=== PATIENT | female | born 2000 | race Asian ===

== ENCOUNTER 2025-07-30 10:26 | Outpatient (AMB) | payer BC, SELFPAY ==
--- NOTE | 2025-07-30 10:45 | MHC.PC.OV ---
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 Intake Note: Pt is here today as a New Patient to [facility] care/PE Is last menstrual period known: Yes Last menstrual period: 07/01/25 Allergies No Known Allergies Allergy (Verified 07/30/25 11:10) Medication List - Last Reconciled 07/30/25 by Caridad Paul MD atomoxetine 60 mg PO QAM Tobacco use date assessed: 07/30/25 Dental Screening Dental Screen Date: 07/30/25 Did you have a dental visit in the last 12 months?: Yes Did you have a dental problem in the last 6 months where you did not have access to dental care?: No Was dental information given to patient?: 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 She is currently being followed by Silvio Liu at [facility] for treatment of ADHD, currently on Strattera. Diagnosed with ADHD at age 10, and has tried Adderall, Vyvanse, which did not help, now on Strattera which has been helping. She has been feeling well, with no complaints at present time. Sexually active not on any control pills or contraceptions, patient states that boyfriend will be getting a vasectomy. Never had a cervical cancer screening or Pap smear done [facility] Medical History (Updated 07/30/25 @ 11:35 by Caridad Paul MD) ADHD Surgical History (Updated 07/30/25 @ 11:30 by Caridad Paul MD) No pertinent past surgical history Family History (Updated 07/30/25 @ 11:32 by Caridad Paul MD) Other No pertinent family history Social History Housing: House Patient Tobacco Use Status: Never used Tobacco e-Cigarette/Vaping Use: Currently Using service: No Current occupational status: employed Cognitive needs: No Hearing needs: No Vision needs: Yes Female Reproductive History Menstrual Date of last menstrual period: 07/01/25 control method: none Questionnaire PHQ-9 Over the last 2 weeks, how often have you been bothered by any of the following problems? 1. Little interest or pleasure in doing things: not at all 2. Feeling down, depressed, or hopeless: not at all 3. Trouble falling or staying asleep, or sleeping too much: several days 4. Feeling tired or having little energy: several days 5. Poor appetite or overeating: several days 6. Feeling bad about yourself - or that you are a failure or have let yourself or your family down: not at all 7. Trouble concentrating on things, such as reading the newspaper or watching television: several days 8. Moving or speaking so slowly that other people could have noticed. Or the opposite - being so fidgety or restless that you have been moving around a lot more than usual: not at all 9. Thoughts that you would be better off or of hurting yourself in some way: not at all Total score: 4 Depression Screening Interpretation: Negative Depression Screening Done: Yes 45094 - PHQ-9 Billing: Yes Source: Developed by Drs. Cam Wiseman, Heather Choe, Jeison Miller and colleagues, with an educational rosaline from [employer]. Thrive Questionnaire Date Thrive assessed: 07/30/25 I am a: Patient What is your living situation today?: I have a steady place to live Within the past 12 months, did the food you bought not last and you didn't have the money to get more?: Never true Within the past 12 months, did you worry whether your food would run out before you got money to buy more?: Never true Do you have trouble paying for medicines?: No Do you have trouble getting transportation to medical appointments?: No Do you have trouble paying your heating and electricity bill?: No Do you have trouble taking care of your child, family member or friend?: No Do you have trouble with day-to-day activities such as bathing, preparing meals, shopping, managing finances, etc.?: No Are you currently unemployed and looking for a job?: No Are you interested in more education?: No Please select the resources that you would like help with: None Currently or been in a relationship where the following occur: No concerns reported THRIVE Score: 0 AUDIT C Alcohol Use Questionnaire (AUDIT-C) 1. How often do you have a drink containing alcohol?: 2-4 times a month 2. How many drinks containing alcohol do you have on a typical day when you are drinking?: 1 or 2 3. How often do you have six or more drinks on one occasion?: Never Total Score: 2 Score Reviewed/Action Taken: Yes CHARITY-7 AMB Questionnaire CHARITY-7 Date CHARITY - 7 assessed: 07/30/25 Feeling nervous, anxious, or on edge: 1 = Several days Not being able to stop or control worryin = Several days Worrying too much about different things: 1 = Several days Trouble relaxin = More than half the days Being so restless that it is hard to sit still: 1 = Several days Becoming easily annoyed or irritable: 0 = Not at all Feeling afraid as if something awful might happen: 1 = Several days Total CHARITY-7 score (0-4 normal; 5-9 mild; 10-14 moderate; 15-21 severe): 7 Source: Developed by Drs. Cam Wiseman, Heather Choe, Jeison Miller and colleagues, with an educational rosaline from [employer]. CHARITY-7 Assessment Billing CHARITY-7 Assessment Tool: CHARITY-7 Assessment 46249 (Currently being seen for ADHD at [facility], sees Silvio Liu, currently on Strattera) Review of Systems Const Denies body aches, Denies fatigue, Denies fever(s), Denies headache(s) and Denies weakness Eyes Denies change in vision, Denies eye discharge and Denies itchy eyes ENT Denies dizziness, Denies headache(s), Denies nasal congestion, Denies nasal discharge and Denies sore throat Card Denies chest pain, Denies lightheadedness, Denies palpitations and Denies dyspnea Resp Denies chest congestion, Denies cough, Denies dyspnea and Denies wheezing GI Denies abdominal pain, Denies change in bowel habits and Denies heartburn Denies hematuria, Denies urinary frequency, Denies dysuria and Denies urinary urgency Musc Reports no additional complaints Skin/Breast Denies breast pain, Denies breast mass, Denies lesions and Denies rash Neuro Denies dizziness, Denies headache(s) and Denies weakness Psych Reports as per HPI Endo Denies fatigue, Denies polydipsia, Denies polyuria and Denies palpitations Abdi/Lymph Denies easy bruising Aller/Immun Denies itchy eyes, Denies seasonal rhinorrhea and Denies wheezing Physical exam (Primary Care) Vital Signs: Last Vital Signs Temp 98.2 F 07/30/25 11:03 Pulse 87 07/30/25 11:03 Resp 15 07/30/25 11:03 BP 100/60 07/30/25 11:03 Pulse Ox 98 07/30/25 11:03 Oxygen Delivery Method Room Air 07/30/25 11:03 BMI result Body Mass Index 21.7 Tobacco/Smoking Status: Tobacco use Status Tobacco use date assessed 07/30/25 07/30/25 11:09 Patient Tobacco Use Status Never used Tobacco 07/30/25 11:09 e-Cigarette/Vaping Use Currently Using 07/30/25 11:09 PHQ-9: PHQ-9 Score PHQ-9: Total score 12 07/30/25 11:09 Depression Screening Interpretation: Negative Thrive Assessment: Date of Thrive Assessment Date Thrive assessed 07/30/25 07/30/25 11:09 Currently or been in a relationship where the following occur: No concerns reported Const General: no acute distress and alert Orientation/consciousness: patient oriented x3 HENMT Head: Yes normocephalic Ears: external ears normal, TM's normal bilaterally and EAC's normal General nose exam: Normal external nose present and No nasal discharge present Face and sinus: Yes face symmetric Mouth: Normal oral and palatal mucosa present, lip normal, tongue normal and moist mucous membranes Eyes General: appearance normal, both eyes and all related structures Eyelids: Yes eyelids normal Conjunctivae: conjunctivae normal Sclerae: sclerae normal Pupils: Equal, round and reactive pupils present EOM: EOMs intact bilaterally Neck Neck: Yes full ROM, Yes no lymphadenopathy and Yes supple Thyroid: Thyroid normal Chest Breast/axilla inspection: normal inspection of the breasts Breast/axilla palpation: normal palpation of the breasts Resp Effort & Inspection: normal respiratory effort and able to speak in complete sentences Auscultation: clear to auscultation bilaterally Cardio Rate: regular rate Rhythm: regular rhythm Heart sounds: S1 normal heart sound present and S2 normal heart sound present GI Palpation (GI): Soft to palpation, nontender, no guarding and no masses Auscultation: normal bowel sounds General: Yes no CVA tenderness Back/Spine/Pelvis Back: no CVA tenderness and No back tenderness Skin General skin exam: no rashes or lesions noted Neuro General: patient oriented x3, gait normal, moves all extremities and no focal motor deficits Cranial nerves: Yes Equal, round and reactive pupils present Cognition (Neuro): normal cognition Gait exam (Neuro): Normal gait present Motor exam (neuro): 5/5 motor strength present throughout Extrem General: Yes normal to inspection, Yes full ROM, Yes no joint enlargement, Yes no pedal edema and Yes normal gait Psych Appearance: grossly normal and well kempt Mental Status: mental status grossly normal Speech and movement: Normal speech and movement present Affect: normal affect Coding Level of Care Code Est Pt Prev Care 18-39y(57709) Diagnoses Annual visit for general adult medical examination with abnormal findings Z00.01 Screening for malignant neoplasm of cervix Z12.4 Attention deficit hyperactivity disorder (ADHD), unspecified ADHD type F90.9 Attention deficit-hyperactivity disorder type: unspecified Advance directive discussed with patient Z71.89 Additional Codes CHARITY-7 Assessment Billing - CHARITY-7 Assessment Tool: CHARITY-7 Assessment 48595 ([id number]) PHQ-9 - 76210 - PHQ-9 Billing: Yes ([id number]) Assessment & Plan Assessment & Plan (1) Annual visit for general adult medical examination with abnormal findings: Code(s): Z00.01 - Encounter for general adult medical examination with abnormal findings (2) Screening for malignant neoplasm of cervix: Code(s): Z12.4 - Encounter for screening for malignant neoplasm of cervix (3) ADHD: Comment: Followed by Silvio Liu, currently on Strattera Code(s): F90.9 - Attention-deficit hyperactivity disorder, unspecified type Category: Medical Qualifiers: Attention deficit-hyperactivity disorder type: unspecified Qualified Code(s): F90.9 - Attention-deficit hyperactivity disorder, unspecified type Plan: Currently on Strattera, followed at [facility] by Silvio Liu (4) Advance directive discussed with patient: Code(s): Z71.89 - Other specified counseling Plan: Initiated the conversation about Advanced Directives. Advanced Directives help patients prepare for current and future decisions about their medical treatment and place of care. Discussed with patient that it is a process where a patients current condition and prognosis are reviewed, their wishes for information regarding their illness are elicited, and likely medical dilemmas are presented and options discussed. Healthcare proxy form completed today. The form can be amended as needed, reviewed yearly and make changes as needed Plan Will check appropriate labs. Recommended dental visit every 6 months and regular eye exams, at least every 2 years. Take adequate calcium in diet and vitamin-D 3 at 2000 IU per cap once a day, in addition to weight-bearing exercises to help maintain good muscle tone and weight control. Instructed to do self-breast exam, and recommended to get yearly mammogram, starting at age 40. Referred to [facility] for her initial cervical cancer screening and pelvic exam. Flu vaccine given today. Up-to-date with to Tdap declines getting COVID booster Orders: Orders Influenza [id number] Immunization Today Z23 - Encounter for immunization Alanine Aminotransferase Today F90.9 - Attention-deficit hyperactivity disorder, unspecified type, Z13.0 - Encounter for screening for diseases of the blood and blood-forming organs and certain disorders involving the immune mechanism, Z13.1 - Encounter for screening for diabetes mellitus, Z13.220 - Encounter for screening for lipoid disorders Basic Metabolic Panel Fasting Today F90.9 - Attention-deficit hyperactivity disorder, unspecified type, Z13.0 - Encounter for screening for diseases of the blood and blood-forming organs and certain disorders involving the immune mechanism, Z13.1 - Encounter for screening for diabetes mellitus, Z13.220 - Encounter for screening for lipoid disorders Aspartate Amino Transferase Today F90.9 - Attention-deficit hyperactivity disorder, unspecified type, Z13.0 - Encounter for screening for diseases of the blood and blood-forming organs and certain disorders involving the immune mechanism, Z13.1 - Encounter for screening for diabetes mellitus, Z13.220 - Encounter for screening for lipoid disorders Complete Blood Count Auto Diff Today F90.9 - Attention-deficit hyperactivity disorder, unspecified type, Z13.0 - Encounter for screening for diseases of the blood and blood-forming organs and certain disorders involving the immune mechanism, Z13.1 - Encounter for screening for diabetes mellitus, Z13.220 - Encounter for screening for lipoid disorders Lipid Panel Today F90.9 - Attention-deficit hyperactivity disorder, unspecified type, Z13.0 - Encounter for screening for diseases of the blood and blood-forming organs and certain disorders involving the immune mechanism, Z13.1 - Encounter for screening for diabetes mellitus, Z13.220 - Encounter for screening for lipoid disorders Vitamin D 25-OH Total Today F90.9 - Attention-deficit hyperactivity disorder, unspecified type, Z13.0 - Encounter for screening for diseases of the blood and blood-forming organs and certain disorders involving the immune mechanism, Z13.1 - Encounter for screening for diabetes mellitus, Z13.220 - Encounter for screening for lipoid disorders Referrals ACQUISITION ASSOCIATE Referral Z12.4 - Encounter for screening for malignant neoplasm of cervix Medications: New Fluarix [id number] (PF) (flu vac ts (6mos up)-PF) 0.5 mL IM ONCE 0.5 mL 0RF NS Z23 - Encounter for immunization
[2025-07-30 11:03] VITALS: BP 100/60; PULSE 87; RESP 15; TEMP 36.8; O2SAT 98; BMI 21.7
--- OUTSIDE RECORDS SUMMARY | 2025-07-30 12:24 | XMS_ITS | Encounter Summary ---
Author Organization [facility] Address [address] [place] [phone] Phone Care Team Providers Care Multiple Coil Winder Name Role Phone Cyndee Bey MD Primary Care Provider [phone] Encounter Details Date Type Department Care Team (Late st Contact Info) Description 12/28/2016 Documentation [facility] [place] [address] [place] [address] Family Medicine, Physician [address] [place] [place], [place] [phone] Social History Tobacco Use Types Packs/Day Years Used Date Smoking Tobacco: Never Assessed Comments Unknown Sex and Gender Information Value Date Recorded Sex Assigned at Female 05/27/2020 11:05 AM EDT Legal Sex Female 5:23 PM EDT Gender Identity Female 05/27/2020 11:05 AM EDT Sexual Orientation Lesbian or House 05/27/2020 11 :05 AM EDT documented as of this encounter Plan of Treatment Not on file documented as of this encounter Visit Diagnoses Not on filedocumented in this encounter Care Teams Multiple Coil Winder Relationship Specialty Start Date End Date Cyndee Bey MD [address] [place] [id number] PCP - General 06/22/17 12/10/17 documented as of this encounter
--- OUTSIDE RECORDS SUMMARY | 2025-07-30 12:24 | XMS_ITS | Encounter Summary ---
Author Organization [facility] Address [address] [place] [address] Phone Care Team Providers Care Production Crew Supervisor Name Role Phone Cyndee Bey MD Primary Care Provider Encounter Details Date Type Department Care Team (Late st Contact Info) Description 02/08/2017 Documentation [facility] [place] Medicine [address] [place] [address] Family Medicine, Physician [address], [place] [id number] Social History Tobacco Use Types Packs/Day Years [...] on filedocumented in this encounter Care Teams Production Crew Supervisor Relationship Specialty Start Date End Date Cyndee Bey MD [address] [place] [address] PCP - General 06/22/17 12/10/17 documented as of this encounter
--- OUTSIDE RECORDS SUMMARY | 2025-07-30 12:24 | XMS_ITS | Encounter Summary ---
Author Organization [facility] Address [address] [place] [address] Phone Care Team Providers Care Datastage Consultant Name Role Phone Cyndee Bey MD Primary Care Provider [phone] Encounter Details Date Type Department Care Team (Late st Contact Info) Description 12/28/2016 [place] [facility] [place] [address] [place] [address] Family Medicine, Physician [address] [place], [place] [phone] Social History Tobacco Use Types Packs/Day Years [...] on filedocumented in this encounter Care Teams Datastage Consultant Relationship Specialty Start Date End Date Cyndee Bey MD [address] [place] [address] PCP - General 06/22/17 12/10/17 documented as of this encounter
--- OUTSIDE RECORDS SUMMARY | 2025-07-30 12:24 | XMS_ITS | Encounter Summary ---
Author Organization [facility] Address [address] [place] [address] Phone Care Team Providers Care Plating Tank Operator Name Role Phone Cyndee Bey MD Primary Care Provider [phone] Encounter Details Date Type Department Care Team (Late st Contact Info) Description 02/08/2017 [place] [facility] [place] [address] [place] [address] Family Medicine, Physician [address] [place], [place] [address] Social History Tobacco Use Types Packs/Day Years [...] on filedocumented in this encounter Care Teams Plating Tank Operator Relationship Specialty Start Date End Date Cyndee Bey MD [address] [place] [address] PCP - General 06/22/17 12/10/17 documented as of this encounter
--- OUTSIDE RECORDS SUMMARY | 2025-07-30 12:24 | XMS_ITS | Encounter Summary ---
Author Organization [facility] Address [address] [place] [address] Phone Care Team Providers Care Manager College Name Role Phone Cyndee Bey MD Primary Care Provider [phone] Encounter Details Date Type Department Care Team (Late st Contact Info) Description 02/08/2017 Documentation [facility] [place] Family Medicine [address] [place] [address] Family Medicine, Physician [address], [place] [address] Social History Tobacco Use Types Packs/Day Years [...] on filedocumented in this encounter Care Teams Manager College Relationship Specialty Start Date End Date Cyndee Bey MD [address] [place] [phone] PCP - General 06/22/17 12/10/17 documented as of this encounter
--- OUTSIDE RECORDS SUMMARY | 2025-07-30 12:24 | XMS_ITS | Encounter Summary ---
Author Organization [facility] Address [address] [place] [address] Phone Care Team Providers Care Equipment Cleaner And Tester Name Role Phone Cyndee Bey MD Primary Care Provider Encounter Details Date Type Department Care Team (Late st Contact Info) Description 06/30/2017 [place] [facility] [place] [address] [place] [address] Family Medicine, Physician [address], [place] [phone] Social History Tobacco Use Types Packs/Day Years Used Date Smoking Tobacco: Never Comments:Never smoker Comments Unknown Sex and Gender Information Value [...] on filedocumented in this encounter Care Teams Equipment Cleaner And Tester Relationship Specialty Start Date End Date Cyndee Bey MD [address] [place] [address] PCP - General 06/22/17 12/10/17 documented as of this encounter
--- OUTSIDE RECORDS SUMMARY | 2025-07-30 12:24 | XMS_ITS | Encounter Summary ---
Author Organization [facility] Address [address] [place] [address] Phone Care Team Providers Care Video Games Mechanic Name Role Phone Cyndee Bey MD Primary Care Provider [phone] Encounter Details Date Type Department Care Team (Late st Contact Info) Description 12/28/2016 [place] [facility] [place] [address] [place] [address] Family Medicine, Physician [address], [place] [phone] Social History Tobacco Use Types Packs/Day Years [...] on filedocumented in this encounter Care Teams Video Games Mechanic Relationship Specialty Start Date End Date Cyndee Bey MD [address] [place] [phone] PCP - General 06/22/17 12/10/17 documented as of this encounter
--- OUTSIDE RECORDS SUMMARY | 2025-07-30 12:24 | XMS_ITS | Encounter Summary ---
Author Organization [facility] Address [address] [place] [address] Phone Care Team Providers Care Superintendent Sales Name Role Phone Cyndee Bey MD Primary Care Provider [phone] Encounter Details Date Type Department Care Team (Late st Contact Info) Description 10/30/2016 Documentation [facility] [place] [address] [place] [address] Family Medicine, Physician [address] [place] [phone] Social History Tobacco Use Types Packs/Day Years [...] on filedocumented in this encounter Care Teams Superintendent Sales Relationship Specialty Start Date End Date Cyndee Bey MD [address] [place] [phone] PCP - General 06/22/17 12/10/17 documented as of this encounter
--- OUTSIDE RECORDS SUMMARY | 2025-07-30 12:24 | XMS_ITS | Encounter Summary ---
Author Organization [facility] Address [address] [place] [address] Phone Care Team Providers Care Nursing Staffing Coordinator Name Role Phone Cyndee Bey MD Primary Care Provider [phone] Encounter Details Date Type Department Care Team (Late st Contact Info) Description 02/08/2017 Documentation [facility] [place] [address] [place] [address] Family Medicine, Physician [address], [place] [phone] Social History Tobacco Use Types Packs/Day Years [...] on filedocumented in this encounter Care Teams Nursing Staffing Coordinator Relationship Specialty Start Date End Date Cyndee Bey MD [address] [place] [phone] PCP - General 06/22/17 12/10/17 documented as of this encounter
--- OUTSIDE RECORDS SUMMARY | 2025-07-30 12:24 | XMS_ITS | Clinical Summary ---
Author Organization [facility] Address [address] [place] [phone] Phone Care Team Providers Care Outplacement Consultant Name Role Phone Unavailable Primary Care Provider Unavailabl e Allergies No known active allergies Medications albuterol HFA 108 (90 Base) MCG/ACT inhalerIndications :Cough Inhale 2 puffs every 4 (four) hours as needed for wheezing or shortness of breath. 1 Units 4 Active citalopram 40 MG tabletIndications: Anxiety and depression TAKE 1 TABLET BY MOUTH EVERY DAY IN THE MORNING 30 tablet 3 4 Active methylphenidate (Concerta) 27 MG CR tabletIndications: Attention deficit hyperactivity disorder (ADHD), combined type Take 1 tablet (27 mg total) by mouth every morning. 30 tablet 4 Active Active Problems Problem Noted Date Diagnosed Date Globus sensation 08/01/2024 Overview (08/01/2024): Common sensation often confused with asthma, is more of a feeling in the throat, leads to a cough, which goes away on own as well as with albuterol. No wheeze, no SOB, no sx at the typical times for asthma (night, with activity). Is common with people under stress Assessment & Plan (08/01/2024 9:18 AM EDT): Practice your breathing exercises on your own, and when needed. If you get that scratchy feeling in your throat, drink some cool or warm liquids, or a throat lozenge. No need for albuterol. Mild intermittent asthma without complication Assessment & Plan (08/01/2024 9:21 AM EDT): Only use albuterol if you are coughing and wheezing and short of breath. If you need it, use albuterol Assessment & Plan (04/25/2024 11:10 AM EDT): Continue with albuterol if needed, and call if needing > several times a month Assessment & Plan (02/06/2024 3:36 PM EDT): Use your albuterol with an aerochamber, call if needing for more than a week every month or more than every 4 hours. Psychosocial stressors 02/07/2022 Overview (03/30/2023): Financial pressures; Having to pay rent at home 04/03: stressors continue, see hx. Assessment & Plan (09/11/2023 10:17 AM EDT): Remember, your mom bugs you because she cares. Assessment & Plan (03/30/2023 6:03 PM EDT): Discussed with Kamala: warm handoff made, will call mom Assessment & Plan (04/28/2022 9:37 AM EDT): Not having to pay rent now. Mom and dad paying for college Assessment & Plan (02/08/2022 10:53 AM EDT): Will call parents about unusual situation where aMr is charged rent, at age 21. Next morning: called mom, had long conversation. Mom said she is doing this to motivate her. Said that Mar knows that if she goes to school, she will not have to pay rent, and mom will help pay. Sent her and sister to [place] last winter and will send her again as gift. Says she is unmotivated, staying in room all day. Strongly suggested to mom that Mar and she should come in to see Kamala and me together at the next visit, because clearly, this motivational exercise is not working. Attention deficit hyperactiv ity disorder (ADHD), combined type 05/31/2021 Overview (10/14/2024): Says ADHD has gotten worse, sometimes forgets to eat 10/02: Review of symptoms which seem very vague, I feel concentration problems are because of anxiety/depression. Methylphenidate not helping. Her psychiatrist should be writing for psyche meds. 01/31: notes troubles concentrating, even to do things she enjoys, like her art work 08/04: still problems with inattention, completing work ,etc, never started vyvanse. 09/03: now doing better on vyvanse 12/05: was off vyvanse because of unavailability at local pharmacy, see HPI. Problem solved with Mar. Found [facility] to [facility], with vyvanse available. 05/05: says that concerta not as good as vyvanse but vyvanse unavailable. 11/04 more symptoms now. Assessment & Plan (10/14/2024 8:48 AM EST): Will increase Concerta to 27 mg, but more important: GET 7-8 HOURS OF SLEEP/NIGHT GET FRESH AIR/EXERCISE TO CLEAR THE COB WEBS AVOID ARTIFICIAL FOOD COLORINGS LOOK AT YOUR CALENDAR/SCHEDULE FIRST THING EVERY AM, make a reminder to do so if you need to. Great books: Dyllan Guaman's Delivered from Distraction and ADHD 2.0 Assessment & Plan (04/25/2024 11:10 AM EDT): Continue with present plan Assessment & Plan (02/06/2024 3:31 PM EDT): Continue with the Vyvanse. Make sure to let us know if your pharmacy does not have the rx, right away. Can substitute concerta if it is not available. Assessment & Plan (11/30/2023 11:54 AM EST): Will switch pharmacies. Go there now. See me in a few weeks. Assessment & Plan (09/11/2023 10:13 AM EDT): Continue with vyvanse, and proper sleep, exercise, diet (no afc's), and the books of Dr Guaman. Assessment & Plan (08/07/2023 10:23 AM EDT): Make SURE to start the Vyvanse! Write down appointments and things to do in your phone with alerts! Assessment & Plan (07/20/2023 9:30 AM EDT): Did poorly with focalin, and adderall in the past. Will start vyvanse though will need PA. Assessment & Plan (04/25/2023 9:47 AM EDT): Not her major issue now, can address at subsequent visit Assessment & Plan (03/30/2023 6:05 PM EDT): Will work on this issue later. Must address anxiety first. Assessment & Plan (07/12/2022 5:39 PM EDT): Will have to monitor. 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 Make sure to get enough sleep, and fresh air/exercise and avoid artificial food colorings. Check out the Adult ADD Solution by Ronny Stephens. Assessment & Plan (04/28/2022 9:39 AM EDT): Doing well on present med. Check out the Adult ADD solution. Assessment & Plan (03/10/2022 2:21 PM EDT): Read or listen to The Adult ADHD Solution, by Ronny Stephens Continue medicine. Get Fresh Air and exercise, mow the lawn. Assessment & Plan (02/08/2022 10:54 AM EDT): Treating depression will help. Assessment & Plan (01/10/2022 4:58 PM EST): Is more of an issue now. Will begin focalin, low dose=10mgXR Assessment & Plan (10/11/2021 9:34 AM EST): Stop concerta. Assessment & Plan (08/23/2021 9:27 AM EDT): Strattera caused depression so begin concerta. It will really help you. It will help you remember to eat! Assessment & Plan (07/26/2021 5:15 PM EDT): Begin on non stimulant ADD med, and avoid artificial food coloring and too much sugar. 1.Eat healthy foods, do not skip meals, avoid too much sugar and ALL ARTIFICIAL FOOD COLORINGS. 2. Get enough sleep, every night. 3. Get at least an hour of fresh air and exercise a day. 4. No more than 2 hours of screen time a day. 5. Maintain a structured schedule every day, with a quiet place to do homework. 6. Create a to do list to keep track of homework. 7. Take medication as ordered. 8. Complete teacher's and parent's [place] if not done in the last 6 months. . Address any learning issues and any emotional problems. Assessment & Plan (05/31/2021 2:19 PM EDT): Make sure to follow up with therapist and med prescriber Anxiety and depression 12/07/2017 Overview (10/14/2024): Was on venlafaxine, no bupropion, sees Sunita at [place]. 05/2021: Feels better that she is not in high school. 09/01: More depressed with strattera, has trouble knowing when to listen to her feelings. Asked the how questions and discussed connection between emotions, physical feelings, thoughts, and actions. 10/02 still depressed, not doing the lifestyle things she admits she needs to do to lift the depression, and not seeing her med provider nor therapist. 01/31: Seemed to be doing fairly well off anti depressant, but seems really depressed today, some may be situational, being forced to pay rent at home. Will call mom. But will start prozac, never had side effects with it when started in 2018, had headaches, but had headaches off med. Risks of the med including SI discussed 03/03: I think prozac is really helping. 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 [place] better afterwards, presented this as a way of taking a break from negative thoughts, to give her the experience of calm, peace, comfort. 06/03: in crisis. See note. Saw Kamala yesterday and today, crisis following. Has failed venlflaxine, buproprion, and now prozac (though only 20mg). Was in crisis. Denies SI now but very sad, tearful. Called Dr. Quintero's office for consideration of TMS, instructed to email Silvana Louis, with [facility] Marinelli, consulting psychiatrist: [email or web address]. Safety plan done. 07/04 still severe. Prozac, she says, makes her more anxious, will switch to citalopram, effective for anxiety, begin with 20mg may well need higher dose though is potentiated by ADD rx, also will look into TMS again next week 08/04: still severe depression and anxiety, but there has not been enough time for citalopram to work, is synergistic with vyvanse and did not start that. What is encouraging is that she has stopped spending as much time in unhealthy relationships (at work with older man, and with former girl friend) and is reaching out to HS friends, is staying in school. 09/03: still complains of anxiety/sadness, though seems happier today in interview, see forms. 12/05: is worse now, off of vyvanse, at home, am concerned about suicidal ideation, and longstanding depression though looking forward to school, beginning new job, has supports, in therapy. 02/02: doing much better now!. Enjoys school, seems more mature, med combination seems to be helping though sometimes tough to get ashish. 05/05:doing well seeing Kamala, and on high dose citalopram, seeing friends, enjoying her art 08/05: actually feeling better anxiety sheppard, now, though having somatic c/o below. 11/04: much improved. Assessment & Plan (10/14/2024 5:54 PM EST): Keep up the good work! I'd like to talk with your therapist. Needs to find a new med provider as I cannot rx meds after you turn 24. Assessment & Plan (04/25/2024 11:09 AM EDT): Keep up the good work, with school, friends, navigating things with your mom, continue meds, and seeing Kamala Assessment & Plan (03/03/2024 3:28 PM EDT): Patient with low mood, difficulty with motivation, and social worries, has also been diagnosed with ADHD. Patient will benefit from CBT strategies and support with organization, being more independent, and completing tasks. Patient is ready to address motivation and anxious thoughts. Strengths include creativity and compassion. PLAN: Follow up with [facility] 2 weeks Patient goal is increase motivation and improve mood and focus by self report. Behavioral Recommendations: Set deadlines for tasks and schedule the work. Use lists, timers, and alarms. Clean desk to make a dedicated art space c. Get outside and do things that you enjoy d. Write about the worries and then put them aside if they are things that you don't have control over. Write something positive in addition at the end of the day. Try using prompts. e. Plan local trips and outings with friends Assessment & Plan (02/08/2024 3:21 PM EDT): Patient with low mood, difficulty with motivation, and social worries, has also been diagnosed with ADHD. Patient will benefit from CBT strategies and support with organization, being more independent, and completing tasks. Patient is ready to address motivation and anxious thoughts. Strengths include creativity and compassion. PLAN: Follow up with [facility] 2 weeks Patient goal is increase motivation and improve mood and focus by self report. Behavioral Recommendations: Set deadlines for tasks and schedule the work. Use lists, timers, and alarms. Clean desk to make a dedicated art space c. Get outside and do things that you enjoy d. Write about the worries and then put them aside if they are things that you don't have control over. Write something positive in addition at the end of the day. Try using prompts. e. Plan local trips and outings with friends Assessment & Plan (02/06/2024 3:29 PM EDT): Keep up the good work! Continue the citalopram. Continue therapy with Kamala. Continue your art work. Assessment & Plan (01/22/2024 10:48 AM EDT): Patient with low mood, difficulty with motivation, and social worries, has also been diagnosed with ADHD. Patient will benefit from CBT strategies and support with organization, being more independent, and completing tasks. Patient is ready to address motivation and anxious thoughts. Strengths include creativity and compassion. PLAN: Follow up with [facility] 2 weeks Patient goal is increase motivation and improve mood and focus by self report. Behavioral Recommendations: Set deadlines for tasks and schedule the work. Use lists, timers, and alarms. Clean desk to make a dedicated art space c. Get outside and do things that you enjoy d. Write about the worries and then put them aside if they are things that you don't have control over. Write something positive in addition at the end of the day. Try using prompts. e. Check out [employer] and other programs Assessment & Plan (01/07/2024 1:44 PM EST): Patient with low mood, difficulty with motivation, and social worries, has also been diagnosed with ADHD. Patient will benefit from CBT strategies and support with organization, being more independent, and completing tasks. Patient is ready to address motivation and anxious thoughts. Strengths include creativity and compassion. PLAN: Follow up with [facility] 2 weeks Patient goal is increase motivation and improve mood and focus by self report. Behavioral Recommendations: Set deadlines for tasks and schedule the work. Use lists, timers, and alarms. Clean desk to make a dedicated art space c. Get outside and do things that you enjoy d. Write about the worries and then put them aside if they are things that you don't have control over. Write something positive in addition at the end of the day. Try using prompts. e. Check out [employer]) and other programs Assessment & Plan (12/17/2023 2:12 PM EST): Patient with low mood, difficulty with motivation, and social worries, has also been diagnosed with ADHD. Patient will benefit from CBT strategies and support with organization, being more independent, and completing tasks. Patient is ready to address motivation and anxious thoughts. Strengths include creativity and compassion. PLAN: Follow up with [facility] 2 weeks Patient goal is increase motivation and improve mood and focus by self report. Behavioral Recommendations: Set deadlines for tasks and schedule the work. Use lists, timers, and alarms. Clean desk to make a dedicated art space c. Get outside and do things that you enjoy d. Write about the worries and then put them aside if they are things that you don't have control over. Write something positive in addition at the end of the day. Try using prompts. e. Check out [employer]) and other programs Assessment & Plan (12/03/2023 12:23 PM EST): Patient with low mood, difficulty with motivation, and social worries, has also been diagnosed with ADHD. Patient will benefit from CBT strategies and support with organization, being more independent, and completing tasks. Patient is ready to address motivation and anxious thoughts. Strengths include creativity and compassion. PLAN: Follow up with [facility] 2 weeks Patient goal is increase motivation and improve mood and focus by self report. Behavioral Recommendations: Set deadlines for tasks and schedule the work. Use lists, timers, and alarms. Clean desk to make a dedicated art space c. Get outside and do things that you enjoy d. Write about the worries and then put them aside if they are things that you don't have control over. Write something positive in addition at the end of the day. Try using prompts. e. Check out [employer]) and other programs Assessment & Plan (11/30/2023 11:57 AM EST): Call me or Kamala if you are not feeling better soon! Talk to your friend, watch funny shows, and get outside in nature. Assessment & Plan (11/14/2023 10:22 AM EST): Patient with low mood, difficulty with motivation, and social worries, has also been diagnosed with ADHD. Patient will benefit from CBT strategies and support with organization, being more independent, and completing tasks. Patient is ready to address motivation and anxious thoughts. Strengths include creativity and compassion. PLAN: Follow up with [facility] 3 weeks Patient goal is increase motivation and improve mood and focus by self report. Behavioral Recommendations: Set deadlines for tasks and schedule the work. Use lists, timers, and alarms. Clean desk to make a dedicated art space c. Get outside and do things that you enjoy d. Write about the worries and then put them aside if they are things that you don't have control over. Write something positive in addition at the end of the day. Try using prompts. e. Check out [employer]) and other programs Assessment & Plan (10/22/2023 10:56 AM EST): Patient with low mood, difficulty with motivation, and social worries, has also been diagnosed with ADHD. Patient will benefit from CBT strategies and support with organization, being more independent, and completing tasks. Patient is ready to address motivation and anxious thoughts. Strengths include creativity and compassion. PLAN: Follow up with [facility] 3 weeks Patient goal is increase motivation and improve mood and focus by self report. Behavioral Recommendations: Set deadlines for tasks and schedule the work. Use lists, timers, and alarms. Clean desk to make a dedicated art space c. Get outside and do things that you enjoy d. Write about the worries and then put them aside if they are things that you don't have control over. Write something positive in addition at the end of the day. Try using prompts. e. Check out [employer]) and other programs Assessment & Plan (10/08/2023 10:08 AM EST): Patient with low mood, difficulty with motivation, and social worries, has also been diagnosed with ADHD. Patient will benefit from CBT strategies and support with organization, being more independent, and completing tasks. Patient is ready to address motivation and anxious thoughts. Strengths include creativity and compassion. PLAN: Follow up with [facility] 2 weeks Patient goal is increase motivation and improve mood and focus by self report. Behavioral Recommendations: Set deadlines for tasks and schedule the work. Use lists, timers, and alarms. Clean desk to make a dedicated art space c. Get outside and do things that you enjoy d. Write about the worries and then put them aside if they are things that you don't have control over. Write something positive in addition at the end of the day. Try using prompts. e. Check out [employer]) and other programs Assessment & Plan (09/21/2023 10:23 AM EST): Patient with low mood, difficulty with motivation, and social worries, has also been diagnosed with ADHD. Patient will benefit from CBT strategies and support with organization, being more independent, and completing tasks. Patient is ready to address motivation and anxious thoughts. Strengths include creativity and compassion. PLAN: Follow up with [facility] 2 weeks Patient goal is increase motivation and improve mood and focus by self report. Behavioral Recommendations: Set deadlines for tasks and schedule the work. Use lists, timers, and alarms. Clean desk to make a dedicated art space c. Get outside and do things that you enjoy d. Write about the worries and then put them aside if they are things that you don't have control over. Write something positive in addition at the end of the day. Try using prompts. e. Check out [employer]) and other programs Assessment & Plan (09/11/2023 12:22 PM EDT): Continue seeing Kamala. Will increase citalopram to 40 mg. Will again look into TMS at Dr. Quintero's Assessment & Plan (09/04/2023 10:16 AM EDT): Patient with low mood, difficulty with motivation, and social worries, has also been diagnosed with ADHD. Patient will benefit from CBT strategies and support with organization, being more independent, and completing tasks. Patient is ready to address motivation and anxious thoughts. Strengths include creativity and compassion. PLAN: Follow up with [facility] 2 weeks Patient goal is increase motivation and improve mood and focus by self report. Behavioral Recommendations: Set deadlines for tasks and schedule the work. Use lists, timers, and alarms. Clean desk to make a dedicated art space c. Get outside and do things that you enjoy d. Write about the worries and then put them aside if they are things that you don't have control over. Write something positive in addition at the end of the day. Try using prompts. e. Check out [employer] and other programs Assessment & Plan (08/21/2023 10:15 AM EDT): Patient with low mood, difficulty with motivation, and social worries, has also been diagnosed with ADHD. Patient will benefit from CBT strategies and support with organization, being more independent, and completing tasks. Patient is ready to address motivation and anxious thoughts. Strengths include creativity and compassion. PLAN: Follow up with [facility] 2 weeks Patient goal is increase motivation and improve mood and focus by self report. Behavioral Recommendations: Set deadlines for tasks and schedule the work. Use lists, timers, and alarms. Clean desk to make a dedicated art space c. Get outside and do things that you enjoy d. Write about the worries and then put them aside if they are things that you don't have control over. Write something positive in addition at the end of the day. Try using prompts. e. Check out [employer] and other programs Assessment & Plan (08/07/2023 10:26 AM EDT): Continue citalopram AND: Find a new job Every day, write down something good that happened that day. Bonus:Even better, write down something SURPISING and good. Every day, go outside for fresh air and exercise. If raining, take an umbrella. Will again look into TMS for you. Assessment & Plan (08/06/2023 10:14 AM EDT): Patient with low mood, difficulty with motivation, and social worries, has also been diagnosed with ADHD. Patient will benefit from CBT strategies and support with organization, being more independent, and completing tasks. Patient is ready to address motivation and anxious thoughts. Strengths include creativity and compassion. PLAN: Follow up with [facility] 2 weeks Patient goal is increase motivation and improve mood and focus by self report. Behavioral Recommendations: Set deadlines for tasks and schedule the work Clean desk to make a dedicated art space c. Write about the worries and then put them aside if they are things that you don't have control over d. Write something positive in addition at the end of the day. Try using prompts. e. Check out [employer]) and other programs Assessment & Plan (07/20/2023 10:25 AM EDT): Patient with low mood, difficulty with motivation, and social worries, has also been diagnosed with ADHD. Patient will benefit from CBT strategies and support with organization, being more independent, and completing tasks. Patient is ready to address motivation and anxious thoughts. Strengths include creativity and compassion. PLAN: Follow up with [facility] 2 weeks Patient goal is increase motivation and improve mood and focus by self report. Behavioral Recommendations: Set deadlines for tasks and schedule the work Clean desk to make a dedicated art space c. Write about the worries and then put them aside if they are things that you don't have control over d. Write something positive in addition at the end of the day. Try using prompts. e. Check out [employer]) and other programs Assessment & Plan (07/20/2023 9:18 AM EDT): Still quite depressed, make sure to contact us or Crisis if you feel like harming yourself. Every day, write in your journal, like a other spatial scientist, if a negative prediction is accurate, and something you've done that shows you are a good person. Continue to see Kamala. You can and should help friends, but a friend should be someone who supports you and makes you feel good. Everyday, make sure to do something that makes you feel good. Assessment & Plan (07/04/2023 10:20 AM EDT): Patient with low mood, difficulty with motivation, and social worries, has also been diagnosed with ADHD. Patient will benefit from CBT strategies and support with organization, being more independent, and completing tasks. Patient is ready to address motivation and anxious thoughts. Strengths include creativity and compassion. PLAN: Follow up with [facility] 2 weeks Patient goal is increase motivation and improve mood and focus by self report. Behavioral Recommendations: Set deadlines for tasks and schedule the work Clean desk to make a dedicated art space c. Write about the worries and then put them aside if they are things that you don't have control over d. Set an alarm for the morning to begin getting up without being woken by mother e. Check out [employer]) and other programs Assessment & Plan (06/20/2023 10:22 AM EDT): Patient with low mood, difficulty with motivation, and social worries, has also been diagnosed with ADHD. Patient will benefit from CBT strategies and support with organization, being more independent, and completing tasks. Patient is ready to address motivation and anxious thoughts. Strengths include creativity and compassion. PLAN: Follow up with [facility] 3 weeks Patient goal is increase motivation and improve mood and focus by self report. Behavioral Recommendations: Set deadlines for tasks and schedule the work Clean desk to make a dedicated art space c. Write about the worries and then put them aside if they are things that you don't have control over d. Set an alarm for the morning to begin getting up without being woken by mother e. Check out [employer]) and other programs Assessment & Plan (06/01/2023 6:22 PM EDT): Has failed venlflaxine, buproprion, and now prozac (though only 20mg). Was in crisis. Denies SI now but very sad, tearful. Called Dr. Quintero's office for consideration of TMS, instructed to email Silvana Louis, with Salma Marinelli, consulting psychiatrist: [email or web address] Pina. I sent email, but did not give any specific information about patient since not HIPPA compliant, just about a 22 y/o, severe depression, gave hx of meds trialed, requested call back, none received by end of day. Will increase fluoxetine to 40mg. Take a second 20mg capsule today, then begin 40mg tomorrow. Practice the skills Cynthia and I have taught you. Phone f/u next week. Note the phone numbers on the safety plan. My number is [phone]. Safety plan done. Follow up phone next week. Discussed patient at length with Kamala. Called [facility] 24 hour crisis line, spoke to Stephane, will extend their alert for a week, and they are aware of doubling of fluoxetine dose with potential SI. Will check in with patient. Assessment & Plan (05/31/2023 10:55 AM EDT): Patient with low mood, difficulty with motivation, and social worries, has also been diagnosed with ADHD. Patient will benefit from CBT strategies and support with organization, being more independent, and completing tasks. Patient is ready to address motivation and anxious thoughts. Strengths include creativity and compassion. PLAN: Follow up with [facility] 3 weeks Patient goal is increase motivation and improve mood and focus by self report. Behavioral Recommendations: Set deadlines for tasks and schedule the work Clean desk to make a dedicated art space c. Write about the worries and then put them aside if they are things that you don't have control over d. Set an alarm for the morning to begin getting up without being woken by mother e. Check out [employer]) and other programs Assessment & Plan (05/14/2023 11:26 AM EDT): Patient with low mood, difficulty with motivation, and social worries, has also been diagnosed with ADHD. Patient will benefit from CBT strategies and support with organization, being more independent, and completing tasks. Patient is ready to address motivation and anxious thoughts. Strengths include creativity and compassion. PLAN: Follow up with [facility] 2 weeks Patient goal is increase motivation and improve mood and focus by self report. Behavioral Recommendations: Set deadlines for tasks and schedule the work Clean desk to make a dedicated art space c. Write about the worries and then put them aside if they are things that you don't have control over d. Set an alarm for the morning to begin getting up without being woken by mother e. Check out [employer]) and other programs Assessment & Plan (04/25/2023 9:47 AM EDT): Some improvement, though still seems sad. Practice the relaxation breathing for a half hour a day, use a free gertrude if you'd like, repeat the mantra I am a good person. I deserve to be happy. I will get there. Assessment & Plan (04/18/2023 4:36 PM EDT): Patient with low mood, difficulty with motivation, and social worries, has also been diagnosed with ADHD. Patient will benefit from CBT strategies and support with organization, being more independent, and completing tasks. Patient is ready to address motivation and anxious thoughts. Strengths include creativity and compassion. PLAN: Follow up with [facility] 4 weeks Patient goal is increase motivation and improve mood and focus by self report. Behavioral Recommendations: Set deadlines for tasks and schedule the work Clean desk to make a dedicated art space c. Write about the worries and then put them aside if they are things that you don't have control over d. Set an alarm for the morning to begin getting up without being woken by mother Assessment & Plan (03/30/2023 11:58 AM EDT): Fluoxetine restarted. Make sure to take it daily! I will call your mom about it. Make sure to get fresh air and exercise daily. Notice how you feel better through the month. Assessment & Plan (12/18/2022 10:27 AM EST): Patient with low mood, difficulty with motivation, and social worries, has also been diagnosed with ADHD. Patient will benefit from CBT strategies and support with organization, being more independent, and completing tasks. Patient is ready to address motivation and anxious thoughts. Strengths include creativity and compassion. PLAN: 1. Follow up with [facility] 2 weeks 2. Patient goal is increase motivation and improve mood and focus by self report. 3. Behavioral Recommendations: a. Set deadlines for tasks and schedule the work b. Clean desk to make a dedicated art space c. Write about the worries and then put them aside if they are things that you don't have control over d. Set an alarm for the morning to begin getting up without being woken by mother Assessment & Plan (12/05/2022 2:12 PM EST): Patient with low mood, difficulty with motivation, and social worries, has also been diagnosed with ADHD. Patient will benefit from CBT strategies and support with organization, being more independent, and completing tasks. Patient is ready to address motivation and anxious thoughts. Strengths include creativity and compassion. PLAN: 1. Follow up with [facility] 2 weeks 2. Patient goal is increase motivation and improve mood and focus by self report. 3. Behavioral Recommendations: a. Set deadlines for tasks and schedule the work b. Clean desk to make a dedicated art space c. Write about the worries and then put them aside if they are things that you don't have control over d. Set an alarm for the morning to begin getting up without being woken by mother Assessment & Plan (10/26/2022 10:29 AM EST): Patient with low mood, difficulty with motivation, and social worries, has also been diagnosed with ADHD. Patient will benefit from CBT strategies and support with organization, being more independent, and completing tasks. Patient is ready to address motivation and anxious thoughts. Strengths include creativity and compassion. PLAN: 1. Follow up with [facility] 3 weeks 2. Patient goal is increase motivation and improve mood and focus by self report. 3. Behavioral Recommendations: a. Set deadlines for tasks and schedule the work b. Clean desk to make a dedicated art space c. Write about the worries and then put them aside if they are things that you don't have control over d. Set an alarm for the morning to begin getting up without being woken by mother Assessment & Plan (10/12/2022 1:05 PM EST): Patient with low mood, difficulty with motivation, and social worries, has also been diagnosed with ADHD. Patient will benefit from CBT strategies and support with organization, being more independent, and completing tasks. Patient is ready to address motivation and anxious thoughts. Strengths include creativity and compassion. PLAN: 1. Follow up with [facility] 2 weeks 2. Patient goal is increase motivation and improve mood and focus by self report. 3. Behavioral Recommendations: a. Set deadlines for tasks and schedule the work b. Review handout for Distraction Techniques and Alternative Coping for self harm and choose 3 strategies to practice c. Write about the worries and then put them aside if they are things that you don't have control over d. Set an alarm for the morning to begin getting up without being woken by mother Assessment & Plan (09/21/2022 1:16 PM EST): Patient with low mood, difficulty with motivation, and social worries, has also been diagnosed with ADHD. Patient will benefit from CBT strategies and support with organization, being more independent, and completing tasks. Patient is ready to address motivation and anxious thoughts. Strengths include creativity and compassion. PLAN: 1. Follow up with [facility] 3 weeks 2. Patient goal is increase motivation and improve mood and focus by self report. 3. Behavioral Recommendations: a. Set deadlines for tasks and schedule the work b. Review handout for Distraction Techniques and Alternative Coping for self harm and choose 3 strategies to practice c. Write about the worries and then put them aside if they are things that you don't have control over d. Set an alarm for the morning to begin getting up without being woken by mother Assessment & Plan (08/30/2022 11:23 AM EDT): Patient with low mood, difficulty with motivation, and social worries, has also been diagnosed with ADHD. Patient will benefit from CBT strategies and support with organization, being more independent, and completing tasks. Patient is ready to address motivation and anxious thoughts. Strengths include creativity and compassion. PLAN: 1. Follow up with [facility] 3 weeks 2. Patient goal is increase motivation and improve mood and focus by self report. 3. Behavioral Recommendations: a. Set deadlines for tasks and schedule the work b. Review handout for Distraction Techniques and Alternative Coping for self harm and choose 3 strategies to practice c. Write about the worries and then put them aside if they are things that you don't have control over Assessment & Plan (08/17/2022 10:29 AM EDT): Patient with low mood, difficulty with motivation, and social worries, has also been diagnosed with ADHD. Patient will benefit from CBT strategies and support with organization, being more independent, and completing tasks. Patient is ready to address motivation and anxious thoughts. Strengths include creativity and compassion. PLAN: 1. Follow up with [facility] 2 weeks 2. Patient goal is increase motivation and improve mood and focus by self report. 3. Behavioral Recommendations: a. Set deadlines for tasks and schedule the work b. Review handout for Distraction Techniques and Alternative Coping for self harm and choose 3 strategies to practice c. Write about the worries and then put them aside if they are things that you don't have control over Assessment & Plan (08/03/2022 12:27 PM EDT): Patient with low mood, difficulty with motivation, and social worries, has also been diagnosed with ADHD. Patient will benefit from CBT strategies and support with organization, being more independent, and completing tasks. Patient is ready to address motivation and anxious thoughts. Strengths include creativity and compassion. PLAN: 1. Follow up with [facility] 2 weeks 2. Patient goal is increase motivation and improve mood and focus by self report. 3. Behavioral Recommendations: a. Set deadlines for tasks and schedule the work b. Review handout for Distraction Techniques and Alternative Coping for self harm and choose 3 strategies to practice c. Write about the worries and then put them aside if they are things that you don't have control over Assessment & Plan (07/19/2022 2:12 PM EDT): Patient with low mood, difficulty with motivation, and social worries, has also been diagnosed with ADHD. Patient will benefit from CBT strategies and support with organization, being more independent, and completing tasks. Patient is ready to address motivation and anxious thoughts. Strengths include creativity and compassion. PLAN: 1. Follow up with [facility] 2 weeks 2. Patient goal is increase motivation and improve mood and focus by self report. 3. Behavioral Recommendations: a. Set deadlines for tasks and schedule the work b. Work on the project at the library or at the office c. Write about the worries and then put them aside if they are things that you don't have control over Assessment & Plan (07/12/2022 9:20 AM EDT): Depression and anxiety are worse: 1. Will increase prozac to 40mg 2. Make a chart of worries, and put down if you can do something about each one, and if so, what, and what will be your plan to do something about it. Cross off the ones you can't do anything about (eg Suzanna's situation) 3. Look in the mirror every morning and say: I will take good care of myself, because I am worth it! 4. Make a schedule of when you can go out and get fresh air and exercise for an hour a day, and do it, even if you don't FEEL like it. Sometimes you cannot trust your feelings. You have to DO what is right. If you ever feel like hurting yourself call us right away, or call emergency services. Assessment & Plan (06/28/2022 2:30 PM EDT): Patient with low mood, difficulty with motivation, and social worries, has also been diagnosed with ADHD. Patient will benefit from CBT strategies and support with organization, being more independent, and completing tasks. Patient is ready to address motivation and anxious thoughts. Strengths include creativity and compassion. PLAN: 1. Follow up with [facility] 2 weeks 2. Patient goal is increase motivation and improve mood and focus by self report. 3. Behavioral Recommendations: a. Set deadlines for tasks and schedule the work b. Work on the project at the library or at the office c. Challenge worried thoughts when they occur by checking the facts Assessment & Plan (05/23/2022 10:21 AM EDT): Says is better though CHARITY score is moderate. To see Kamala today. Assessment & Plan (05/03/2022 8:50 AM EDT): Think of your anxiety as a cartoon or video or TV character or animal, or another person: Give it a name, and talk back to it! Keep a little journal of this. Assessment & Plan (04/28/2022 9:37 AM EDT): Is doing better now! If you feel that you have done all the work asked of you, then ask if there is more work to be done! Do not worry if others think You are lazy because you know that is not true. Assessment & Plan (03/10/2022 2:30 PM EDT): Continue prozac 10mg, one pill only daily. Is nauseous. Assessment & Plan (02/07/2022 3:14 PM EDT): You never had a bad reaction to prozac. We should restart it for your depression. Just as important. You need fresh air and exercise every day. Try to look up old friends. Take an art class, if only on line. Book and appt with Kamala. Check out [employer] (Mandeep Lopez). Assessment & Plan (01/10/2022 10:45 PM EST): See Kamala. Get fresh air and exercise daily. Think of [place]. There is no try. There is only to do or not to do See letter written to mom. Lack of financial support by parents certainly is not helping this young woman's mood, anxiety Assessment & Plan (10/11/2021 9:39 AM EST): You need to schedule an appointment with your therapist, and psychiatrist. You need to get outside every day, and walk. Even if only 20 minutes. Get exercise, better sleep, eat 3 meals a day. Assessment & Plan (08/23/2021 9:32 AM EDT): To achieve fresh air goals: First day: Simply leave your room. Second day: Go half way down the stairs to the basement. Third day: Go half way through the basement. Fourth day. Open the basement door to the outside. Fifth day: Take 37 steps outside. Sixth day: Go outside for 100 steps. Seventh day: Go outside for 200 steps or 15 minutes or whatever comes first. Add 100 steps each day up to an hour. Listen to some nice music. Look for migrating birds, and notice the leaves. Concerta may help your depression. Read, or listen to Breaking the Patterns of Depression by Dr. Santos Cabrera. Assessment & Plan (08/27/2019 4:20 PM EDT): Depression not in good control, though has a good friend in [place] she met on line, sees a psychiatrist, and therapist Assessment & Plan (03/26/2019 3:59 PM EDT): Is feeling better most days, sees Faith every 2-3 weeks, dr. olivera Assessment & Plan (02/08/2018 5:34 PM EDT): 1. Make sure to see the therapist as soon as possible. 2. Get the book by Dr. Santos Cabrera, Breaking the Barriers of Depression 3. Practice with the new recording 4. Take the new dose of prozac To Mar: Please do this homework: Write down how emotions are like the weather. Give some examples. Take note of the Contract for Safety you have signed. Make sure to abide by it! To Mom: Make sure to do those things I suggested to you daily. All medicines as well as any guns must be locked up. Assessment & Plan (12/27/2017 5:49 PM EST): Some response to prozac, awaits therapy. Reminded to take fish oil 3 times a day (is taking one qd) Assessment & Plan (12/07/2017 5:29 PM EST): 1. Get at least an hour of exercise 6 out of 7 days, and fresh air if you can. 2. See friends for play dates at least once a week. 3. You MUST go to bed by 9:30 and get up at 6:30am every day. 4. See a therapist, at [facility] for example; I will call but mom flower too. 5. Start Fish oil 1200 mg with food twice a day. 6. Begin Prozac 10mg daily for two weeks, then 20mg. 7. Call for any thoughts of self harm. Any guns must be locked, with ammunition separate with trigger locks. All medicines must be locked up. See me in several weeks. Call me in a week. I suggest reading Breaking the Barriers of Depression by Dr. Santos Cabrera. Resolved Problems Problem Noted Date Diagnosed Date Resolved Date Hair pulling 07/20/2023 08/07/2023 Overview (07/20/2023): I reassured her that this was a common behavior, she should not feel guilty about it,but find substitute habit Assessment & Plan (08/07/2023 10:23 AM EDT): Good work stopping this habit! Assessment & Plan (07/20/2023 9:24 AM EDT): Think of another thing you can pull on besides your own hair, like a doll. Cough 07/12/2022 03/30/2023 Overview (07/12/2022): Feels like asthma to her, no signs of illness, may be related to anxiety as well (functional dyspnea or habit coug) Assessment & Plan (07/12/2022 9:16 AM EDT): Will give trial of albuterol, report results. Weight gain 07/12/2022 03/30/2023 Assessment & Plan (07/12/2022 9:19 AM EDT): If you feel like snacking a lot, snack on fruits or vegetables. Get fresh air and exercise. Skin picking habit 04/28/2022 3 Assessment & Plan (07/12/2022 9:17 AM EDT): I would not worry about this for now. Assessment & Plan (05/23/2022 10:21 AM EDT): Improving. Continue listening to the recording. Assessment & Plan (05/03/2022 8:47 AM EDT): Practice with your recording and record results. Assessment & Plan (04/28/2022 9:39 AM EDT): Keep a record of the picking, when it happens, what you have tried to do to stop it. See me for a consult Body image problem 01/10/2022 2 Overview (03/10/2022): Now is concerned about rapidity of wt gain, but is now normal wt 03/03: is just concerned about buying new clothes. Assessment & Plan (02/07/2022 3:16 PM EDT): Remember, you are a good weight down Assessment & Plan (01/10/2022 10:47 PM EST): Reassured re normal wt, urged to keep it as is, not skip meals. Reminded her that her girlfriend says she is fine. Sleep disorder 10/11/2021 03/30/2023 Overview (03/10/2022): Still up very late at night. Assessment & Plan (07/12/2022 9:18 AM EDT): 1. Start with your present bedtime, but go to bed 5-10 minutes earlier every night until you are going to bed around 10:30 2. Turn off electronics an hour before bed 3. Take melatonin 3 mg around 7pm. 4. NO NAPS 5. Get fresh air and exercise 6. If you waken at night get up and do something boring for 15 minutes. 7. Keep things dark and quiet in bedroom, which should be only for sleep. Assessment & Plan (05/23/2022 10:21 AM EDT): Is better in general, but still stays up late. Assessment & Plan (04/28/2022 9:37 AM EDT): Doing better with melatonin Assessment & Plan (03/10/2022 2:35 PM EDT): Fresh air and exercise, will help, and prozac will help Assessment & Plan (02/07/2022 3:16 PM EDT): Advance your sleep cycle 2-3 hours every day: 1am-4am- 7am -etc until you are going to bed at 10pm. Sleep 7-8 hours. No naps. Take melatonin to help do this, an hour before bed. Keep in the dark for sleep time Assessment & Plan (10/11/2021 9:37 AM EST): 1. Start with your present bedtime, but go to bed 5-10 minutes earlier every night until you are going to bed around 10:30 2. Turn off electronics an hour before bed 3. Take melatonin 3 mg around 7pm. 4. NO NAPS 5. Get fresh air and exercise 6. If you waken at night get up and do something boring for 15 minutes. 7. Keep things dark and quiet in bedroom, which should be only for sleep. Sleep disorder, circadian 07/26/2021 Overview (07/27/2021): Can not overcome ADHD, or anxiety/depression unless getting enough sleep. Assessment & Plan (08/23/2021 9:31 AM EDT): Better now! Assessment & Plan (07/26/2021 5:10 PM EDT): 1. Start with your present bedtime, 4am, but go to bed 15 minutes minutes earlier every night until you are going to bed around midnight. 2. Turn off electronics an hour before bed 3. Take melatonin 3 mg around 7pm. 4. NO NAPS 5. Get fresh air and exercise 6. If you waken at night get up and do something boring for 15 minutes. 7. Keep things dark and quiet in bedroom, which should be only for sleep. Underweight 05/31/2021 01/10/2022 Overview (05/31/2021): Has lost two pounds, forgets to eat Assessment & Plan (01/10/2022 4:58 PM EST): Now better. Assessment & Plan (08/23/2021 9:30 AM EDT): For now, don't worry about your weight. I would take a multi vitamin and vitamin D Assessment & Plan (07/27/2021 3:02 PM EDT): Weight is stable today. Discussed having a good diet/meal schedule Orthostatic dizziness 05/27/20202020 Overview (05/31/2021): Maybe because is so thin. ?if sleeps enough. 06/01: not as much now, but still gets dizzy if kneeling down first for awhile, sitting on her floor. Assessment & Plan (08/23/2021 9:22 PM EDT): Better now. Primary oligomenorrhea 05/27/202001/10 Overview (01/10/2022): Periods every three months, ?because of thin body habitus 06/01: Still only every 2-3 months. 10/02: still only having them every 4 months. 01/31: now is getting them regularly Assessment & Plan (07/27/2021 3:01 PM EDT): Not discussed today. Will refer to Behavioral Consultant on f/u visit Assessment & Plan (05/27/2020 10:34 PM EDT): No time to pursue today. Will f/u at f/u visit, refer to manager of information if persists Migraine with aura and witho ut status migrainosus, not intractable 08/27/2019 07/12/2022 Overview (03/10/2022): From med vs. Depression 06/01: Not as often now, but still gets them about once a week, can last for days, was bitemporal. 08/02: Still gets, related to dehydration, lack of sleep, depression, and maybe, wellbutrin 10/02: not getting headaches as often. better hydrated 01/31: better now. 03/03, gets headaches only a couple of times a week. Assessment & Plan (07/12/2022 9:17 AM EDT): Better now. Assessment & Plan (04/28/2022 10:02 PM EDT): Still has ocassionally Assessment & Plan (02/08/2022 10:53 AM EDT): Call if recurs Assessment & Plan (01/10/2022 4:56 PM EST): Call me if recurs. Assessment & Plan (10/11/2021 5:55 PM EST): Keep doing what you're doing. Assessment & Plan (08/23/2021 9:35 AM EDT): Will continue to monitor, make sure to eat and drink enough. Take magnesium, 250 mg a day Assessment & Plan (07/26/2021 5:18 PM EDT): 1. SEE PRESCRIPTION!: DRINK > 3 LITERS/DAY 2. SEE PRESCRIPTION: >1 HOUR OF FRESH AIR AND ACTIVITY A DAY. 3. SLEEP: See Sleep above. 4. I suggest yoga with Teresa is on line. Good for anxiety too. Assessment & Plan (05/27/2020 11:02 AM EDT): Still gets, every few days. Assessment & Plan (08/27/2019 4:25 PM EDT): [facility] [id number] [place] [id number] Date: HYPNOTHERAPY IN PEDIATRICS What is Hypnotherapy? Hypnosis is a state of increased focus in which a person experiences increased susceptibility to suggestion through hypnosis comes from the Lithuanian word for sleep . A person is usually relaxed in hypnosis but not asleep. Hypnotherapy is the use of hypnosis to solve a particular medical or emotional problem, and the hypnotherapist makes appropriate suggestions to help that process along. A hypnotherapist is a health professional, like a doctor, dentist, or psychologist who has received further training in the theory and practice of hypnosis. Since hypnosis involves the imagination, children usually enjoy it and benefit from it. Another name for hypnotherapy is relaxation mental imagery. The process is similar to daydreaming, meditation, prayer and other practices which encourage focus on breathing, relaxation, and the use of the imagination. Hypnotherapy or Relaxation Mental Imagery (RMI) takes advantage of the mind-body connection, to enable the child to control or change his own physiologic (body) processes, like skin temperature or muscular tension. What is NOT Hypnosis? There are many misconceptions about hypnosis. These misconceptions stem from the eighteenth century when famous hypnotists like Albert Adan claimed to cast energy waves onto his subjects to make them lose control and follow his whim. This is the origin of the word mesmerize. Subjects under hypnosis may learn to do amazing things, like undergo major surgery without anesthesia. But they do NOT lose control. In hypnosis, children are encouraged to be the boss of their bodies. A child or adult in an hypnotic trance can not do anything they do not truly want to do: thus the failure of hypnosis to cure smoking, in many subjects. Stage hypnotists exploit willing volunteers who want to please the hypnotist and the audience, and may want to perform. Acts performed by stage hypnotists, and the instances of hypnosis we see in cartoons, TV shows, and movies like [employer]adin have nothing to do with hypnotherapy. In Pediatrics, a hypnotherapist is like a teacher or a assistant men's soccer coach, teaching a skill that a child or adolescent can use her or his whole life. Those of us who have been privileged to help children learn this skill, have a saying: ALL HYPNOSIS IS SELF-HYPNOSIS. Can all people be hypnotized? There are various scales to measure what has been called hypnotic susceptibility. These scales have not been proven reliable for children and teenagers. Since hypnosis, or RMI depends on our ability to imagine things, and children have such active imaginations, almost all children can successfully be taught self hypnosis. In fact, children often go into spontaneous trance states when they daydream, play, or watch TV. Adults do the same. Children may not always enter the kind of trance that adults have when they practice hypnosis. Unlike adults, children may keep their eyes open, for example, and even move around the room. Since no one who practices hypnosis is actually asleep, people who are in a hypnotic state can talk and answer questions. What can be treated with hypnosis? Hypnotherapy (RMI) has been used to treat a wide variety of medical and psychological disorders in children. Though hypnosis and the related therapy are called alternative , good studies show hypnosis to be MORE effective than drug therapies in treating functional abdominal pain, irritable bowel and childhood migraine headaches. RMI may also be effective in treating, chest pain, and other assorted aches and pains of childhood, like reflex sympathetic dystrophy. (painful hands or feet) Hypnosis may be used as an adjunct (additional) therapy in asthma care, though it does not take the place of medical treatment. The simplest form of RMI, diaphragmatic breathing is suggested by the [place] [employer] and others, as a way to ease the obstruction, and the anxiety of an asthma episode. Hypnosis is the best treatment for vocal cord dysfunction which is often confused with asthma. Hypnotic techniques may be used in preventing a lot of the anxiety and discomfort of office procedures, like shots, throat cultures, and suturing lacerations. RMI is often used by Pediatric dentists; the past president of the [place] [employer] Hypnosis was a dentist. Hypnotherapy is effective in treating tic disorders or Tourette's Syndrome. In fact behavioral treatments like hypnosis are endorsed by the [employer] of [place]. Unlike medicines used for Tourette's, hypnosis has no side effects and it treats the associated anxiety and obsessing (OCD) these people often have. New studies have shown RMI to be as effective as other behavioral therapies like the pad and alarm in treating bed wetting. It is far better than only medicine used for bedwetting. Biofeedback is sometimes used to treat severe constipation and soiling, in combination with medical therapy. RMI may also be used to help insomnia and other sleep disorders. Anxiety and panic attacks are commonly treated using a combination of talking therapy and RMI. There is exciting new research that shows hypnotherapy to be effective in disorders related to the immune system. In fact, there is an entire new field of science, psychoneuroimmunology, devoted to studying the connections between the [place] of the mind and its effect on our bodies' ability to fight infection. For example, one large study showed RMI to be as effective as the most common traditional therapy (liquid nitrogen) in curing warts - which are caused by viruses. What should not be treated with hypnosis? What are it's risks? Compared to medicines and surgery, there are very few risks associated with hypnosis or RMI. In fact, the only major risk is that the diagnosis for which the treatment is being given is correct in the first place. For example, if a child has headaches that are really not migraines, but due to a brain tumor, that problem can not be addressed by hypnosis (though RMI may help the child prepare for surgery). If a child wets his or her bed because of a urinary tract infection, diabetes, or constipation (all medical causes of bed-wetting), those problems need to be addressed first. In addition, hypnotherapy or RMI should be used by health care provider who is properly trained in its use, treating what the doctor is trained to diagnose and treat medically. Though hypnotherapy is used to treat patients with post traumatic stress disorder, for example, pediatricians are not trained to treat this problem, and should leave this treatment and the treatment of other severe psychiatric conditions to mental health professionals. In fact, pediatricians should ask about any emotional disorder or problem at school or in the home (like depression or abuse) before beginning hypnotherapy for a condition like headaches, where stress often plays a role. What kind of training should a hypnotherapist have? A hypnotherapist should be a health care provider with additional training, including supervision, at workshops like those offered by the Society for Behavioral and Developmental Pediatrics, and, ideally certification by an organization like the [place] [employer] Hypnosis. How much time does Hypnosis take? A hypnotherapeutic cure takes anywhere from one to a half dozen sessions, which are usually about a half hour, scheduled a week to a month apart. Of course, the most important part of the hypnotherapy or RMI is the PRACTICE which the child or teen must do on his or her own, once or twice a day. This practice must continue until the program is solved but can often be then applied to other problems like preparation and psyching for a soccer, basketball or hockey game. This is one of the advantages of hypnosis: It is a lifelong skill that can enhance self confidence, independence, and ability in a wide array of activities. If you would like additional information, I can refer you to excellent text books on the subject written by Fernando Snow and Nirali Mann, and a licensed clinical licensed clinical social worker Jenna Razo, as well as several articles I have written. ............Olayinka Maria MD [facility] Refused influenza vaccine 2018 Tachycardia 12/27/2017 02/08/2018 Assessment & Plan (12/27/2017 5:50 PM EST): With anxiety Nausea 10/16/2017 02/28/2018 Assessment & Plan (12/27/2017 5:50 PM EST): With anxiety Assessment & Plan (10/16/2017 12:38 PM EST): May be due to stomach acid vs. Migraine. Fatigue due to depression 02/26/2017 Overview (05/31/2021): When gets anxious can become tired. Assessment & Plan (08/23/2021 9:32 AM EDT): Better though still depressed. Assessment & Plan (05/27/2020 11:25 AM EDT): Still sleeps 12 hours Assessment & Plan (08/27/2019 4:22 PM EDT): Currently active Assessment & Plan (02/08/2018 5:50 PM EDT): This somatic symptom seems to be improving. Assessment & Plan (12/27/2017 5:50 PM EST): Improved Assessment & Plan (12/07/2017 5:29 PM EST): See below Assessment & Plan (10/16/2017 12:39 PM EST): Seems depressed, fatigue probably secondary to that but with daily headache, mild nystagmus, no family history of depression should check MRI of head, and sleep study Mild persistent asthma without complication 02/26/2017 05/27/2020 Immunizations Immunization Administration Dates Next Due COVID-19 Moderna, monovalent , 12+ years 10/28/2021,03/24/2021 COVID-19 Vaccine Moderna, se asonal, 12+ years 02/06/2024 DTaP 5 11/29/2006, 4,04/29/2003,02/23,2002 H1N1 11/02/2009,09/22/2009 HPV Vaccine 9 Valent 07/21/2015 HPV, Quadrivalent 02/15/2015,01/04/2015 Hep A, ped/adol 07/21/2015,01/04/2015 Hep B, ped/adol 08/04/2003,04/29/2003,2002 Hib (HbOC) 04/28/2004 Hib (PRP-T) 04/29/2003,02/23/2003,2002 IPV 11/29/2006, 3,02/23/2003,12/24 Influenza Split 09/28/2010 Influenza, injectable, quadrivalent 09/12/2016,0 01/04/2015 Influenza, injectable, quadr ivalent, preservative free 07/20/2023,08/23/2021,10/05/2020,07/21,12/15/2013 Influenza, injectable, trivalent 11/02/2009 Influenza, intranasal, trivalent 2012 MMR 11/18/2003 MMRV 11/29/2006 Meningococcal B Trumenba 05/23/2022,05/31/2021 Meningococcal Conj (Menactra) MCV4P 03/26/2019,0 12/15/2013 Pneumococcal Conjugate 10/26/2004,2002,02/23/2003,12/24 Tdap 04/25/2024,12/15/2013 Varicella 11/18/2003 Family History Medical History Relation Name Comments No Known Problems Brother Jerod No Known Problems Father Cassius No Known Problems Mother Braulio Tourette syndrome Sister Eunice Relation Name Status Comments Brother Jerod Alive Brother: Alive and well Father Cassius Alive Father: Alive a nd well Maternal Grandfather Materna l grandfather: *Heart Disease Mother Braulio Alive Mother: Alive a nd well Other Family history of Hypertension, Family history of Hyperlipidemia, Family history of Coronary artery disease Paternal Grandfather Paterna l grandfather: Diabetes mellitus, Hypertension Sister Eunice Alive Sister: Alive a nd well Social History Tobacco Use Types Packs/Day Years Used Date Smoking Tobacco: Never Smokeless Tobacco: Never Comments:Never smoker Alcohol Use Standard Drinks/Week Comments Never 0 (1 standard drink = 0.6 oz pur e alcohol) Hunger/Food Answer Date Recorded In the last 12 months, did y ou or your family ever eat less than you felt you should because there wasn't enough money for food? No 04/25/2024 Stable Housing Answer Date Recorded Are you worried that in the next 2 months you may not have stable housing? Yes 04/25/2024 Transportation Concerns Answer Date Rec orded In the last 12 months, have you or your family ever had to go without healthcare because you didn't have a way to get there? No 04/25/2024 Hazards in Home Answer Date Recorded Think about the place you li ve. Do you have problems with any of the following? Pests (mice or roaches), mold, no/not working smoke detectors, water leaks, no window guards. No 2023 Financing Utilities Answer Date Recorde d In the last 12 months, has t he electric, gas, oil, or water company threatened to shut off your services in your home? No 04/25/2024 Safety at Home Answer Date Recorded Are you or your family worried about feeling saf e in your home? No 04/25/2024 Outside Support Answer Date Recorded Do you feel that you need mo re support from other people or programs to help you care for yourself or your family? No 04/25/2024 Understanding Health Concerns Answer Da te Recorded Do you need help understandi ng your or your child's healthcare needs (diagnosis, medications, plan, etc.)? No 04/25/2024 Financing Health Concerns Answer Date R ecorded In the last 12 months, was t here a time when your child needed to see a doctor or get medications or supplies but could not because of cost? No 04/25/2024 Missing School or Work Answer Date Jake rded Did you or your child miss s chool or work because of a health problem that could have been avoided? No 04/25/2024 Child Education Answer Date Recorded Do you have concerns about y our/your child's learning or behavior in school, preschool, or daycare? No 04/25/2024 Comments No Sex and Gender Information Value Date Recorded Sex Assigned at Female 05/27/2020 11:05 AM EDT Legal Sex Female 5:23 PM EDT Gender Identity Female 05/27/2020 11:05 AM EDT Sexual Orientation Lesbian or House 05/27/2020 11 :05 AM EDT Last Filed Vital Signs Vital Sign Reading Time Taken Comments Blood Pressure 105/67 08/01/2024 8:45 AM EDT Pulse 75 08/01/2024 8:45 AM EDT Temperature 36.5 C (97.7 F) 07/20/2023 8:41 AM EDT Respiratory Rate 14 12/27/2017 3:56 PM EST Oxygen Saturation 98% 07/05/2015 12: 00 AM EDT Inhaled Oxygen Concentration - - Weight 58.9 kg (129 lb 12.8 oz) 08/01/2024 8:45 AM EDT Height 158.8 cm (5' 2.5 ) 04/25/2024 10 :30 AM EDT Body Mass Index 23.36 04/25/2024 10:30 AM EDT Plan of Treatment Health Maintenance Due Date Last Done Comments Influenza Vaccines (#1) 2025 07/20/20, 08/23/2021, 10/05/2020, Additional history exists COVID-19 Vaccine (2024- 6 season) 2025 02/06/2024, 10/28/2021, 03/24/2021, Additional history exists DTaP,Tdap,and Td Vaccines (8 - Td or Tdap) 04/25/2034 04/25/2024, 12/15/2013, 11/29/2006, Additional history exists Hepatitis B Vaccines Completed 08/04/2003, 04/29/2003, 2002 HIB Vaccines Completed 04/28/2004, 04/12, 02/23/2003, Additional history exists Pneumococcal Vaccine Completed 10/26/2004, 04/29/2003, 02/23/2003, Additional history exists IPV Vaccines Completed 11/29/2006, 07/14, 02/23/2003, Additional history exists MMR Vaccines Completed 11/29/2006, 11/18/2003 Varicella Vaccines Completed 11/29/2006, 11/18/2003 HPV Vaccines Completed 07/21/2015, 04/04/2015, 01/04/2015 Hepatitis A Vaccines Completed 07/21/2015, 01/04/20 15 Meningococcal Vaccine Completed 03/26/2019, 014 Men B Vaccine Completed 05/23/2022, 05/31/2021 Procedures * Due to [place] [employer] law, this organization might not be sharing sensitive test results. Procedure Name Priority Date/Time Associated Diagnosis Comments CHLAMYDIA AND GONORRHEA, AMPLIFIED Routine 05/31/2021 2:48 PM EDT Special screening for bacterial and spirochetal disease from Last 3 Months or Most Recently Relevant to Health Maintenance Results * Due to [place] [employer] law, this organization might not be sharing sensitive test results. * Chlamydia and Gonorrhoea, Amplified (05/31/2021 2:48 PM EDT) Chlamydia Trachomatis, DNA Probe NEGATIVE (NEG) [facility] Comment: No Chlamydia Trachomatis RNA detected in this patient's sample (REFERENCE RANGE/NORMAL VALUE: NOT DETECTED) Note: This test uses firmware engineer- mediated amplification method to detect rRNA from C. Trachomatis URINE GC AMP PROBE NEGATIVE (NEG) [facility] Comment: No Neisseria Gonorrhoeae RNA detected in this patient's sample (REFERENCE RANGE/NORMAL VALUE: NOT DETECTED) NOTE: This test uses firmware engineer-mediated amplification method to detect rRNA from N.Gonorrhoeae. A negative result does not preclude infection. In the case of a negative urine result, testing of an endocervical(female) or urethral (male) specimen is recommended if there is high clinical suspicion of infection. Due to very high sensitivity of Nucleic Acid Amplification Test, false positive results may occur. Therefore, specimen handling is extremely important. In patients in whom the disease is unlikely, additional sample for testing should be considered after an initial positive result. The performance characteristics of this test have not been evaluated in children. The Aptima Combo2 assay is not intended for the evaluation of suspected sexual abuse or for other medico-legal indications. The ordering provider should assess if the patient had consensual sex without risk of sexual abuse. Consult the [facility] if needed. Contact phone number . Therapeutic failure or success cannot be determined with the Aptima Combo2 assay since nucleic acid may persist following appropriate antimicrobial therapy. The Centers for Disease Control and Prevention (CDC) recommends confirmatory retesting using culture or a different nucleic acid amplification test when positive results occur, if indicated. Testing performed or reported by [facility], a Service of [facility], [address] [place] [address] Jessee Harp MD, Enrollment Services Dean Urine 05/31/2021 2:48 PM EDT 05/31/2021 11:50 PM EDT us Olayinka Maria MD LAB MICROBIOLOGY - GENERAL OR DERABLES Final Result [facility] from Last 3 Months or Most Recently Relevant to Health Maintenance
--- OUTSIDE RECORDS SUMMARY | 2025-07-30 12:24 | XMS_ITS | Encounter Summary ---
Author Organization [facility] Address [address] [place] [address] Phone Care Team Providers Care Elevated Motorman Name Role Phone Unavailable Primary Care Provider Unavailabl e Reason for Visit * Reason Comments Med Refill Encounter Details Date Type Department Care Team (Late st Contact Info) Description 06/10/2023 Refill [facility] [address] [id number] Olayinka Maria MD Anxiety and depression Social History Tobacco Use Types Packs/Day Years [...] there wasn't enough money for food? No 03/30/2023 Stable Housing Answer Date Recorded Are you worried that in the next 2 months you may not have stable housing? No 03/30/2023 Transportation Concerns Answer Date Rec orded In the last 12 months, have you or your family ever had to go without healthcare because you didn't have a way to get there? No 03/30/2023 Hazards in Home Answer Date Recorded Think about the place you li ve. Do you have problems with any of the following? Pests (mice or roaches), mold, no/not working smoke detectors, water leaks, no window guards. No 2022 Financing Utilities Answer Date Recorde d In the last 12 months, has t he electric, gas, oil, or water company threatened to shut off your services in your home? No 03/30/2023 Safety at Home Answer Date Recorded Are you or your family worried about feeling saf e in your home? No 03/30/2023 Outside Support Answer Date Recorded Do you feel that you need mo re support from other people or programs to help you care for yourself or your family? No 03/30/2023 Understanding Health Concerns Answer Da te Recorded Do you need help understandi ng your or your child's healthcare needs (diagnosis, medications, plan, etc.)? No 03/30/2023 Financing Health Concerns Answer Date R ecorded In the last 12 months, was t here a time when your child needed to see a doctor or get medications or supplies but could not because of cost? No 03/30/2023 Missing School or Work Answer Date Jake rded Did you or your child miss s chool or work because of a health problem that could have been avoided? No 03/30/2023 Comments No Sex and Gender Information Value Date Recorded Sex Assigned at Female 05/27/2020 11:05 AM EDT Legal Sex Female 5:23 PM EDT Gender Identity Female 05/27/2020 11:05 AM EDT Sexual Orientation Lesbian or House 05/27/2020 11 :05 AM EDT documented as of this encounter Miscellaneous Notes * Telephone Encounter - Lizbet Car LPN - 06/10/2023 11:17 AM EDT Prescription sent on 06/01/23 documented in this encounter Plan of Treatment Not on file documented as of this encounter Visit Diagnoses Diagnosis Anxiety and depression documented in this encounter
--- OUTSIDE RECORDS SUMMARY | 2025-07-30 12:24 | XMS_ITS | Encounter Summary ---
Author Organization [facility] Address [address] [place] [id number] Phone Care Team Providers Care Galley Stripper Name Role Phone Cyndee Bey MD Primary Care Provider [phone] Encounter Details Date Type Department Care Team (Late st Contact Info) Description 11/19/2012 Documentation [facility] Family Medicine [address] [place] [address] Family Medicine, Physician [address], [place] [id number] Social History Tobacco Use Types Packs/Day Years [...] on filedocumented in this encounter Care Teams Galley Stripper Relationship Specialty Start Date End Date Cyndee Bey MD [address] [place] [phone] PCP - General 06/22/17 12/10/17 documented as of this encounter
--- OUTSIDE RECORDS SUMMARY | 2025-07-30 12:24 | XMS_ITS | Encounter Summary ---
Author Organization [facility] Address [address] [place] [id number] Phone Care Team Providers Care Safety Compliance Specialist Name Role Phone Cyndee Bey MD Primary Care Provider [phone] Encounter Details Date Type Department Care Team (Late st Contact Info) Description 01/08/2017 Documentation [facility] Family Medicine [address] [place] [address] Family Medicine, Physician [address], [place] [phone] Social History Tobacco Use Types Packs/Day Years [...] on filedocumented in this encounter Care Teams Safety Compliance Specialist Relationship Specialty Start Date End Date Cyndee Bey MD [address] [place] [id number] PCP - General 06/22/17 12/10/17 documented as of this encounter
--- OUTSIDE RECORDS SUMMARY | 2025-07-30 12:24 | XMS_ITS | Encounter Summary ---
Author Organization [facility] Address [address] [place] [id number] Phone Care Team Providers Care Letter Of Credit Clerk Name Role Phone Cyndee Bey MD Primary Care Provider [phone] Encounter Details Date Type Department Care Team (Late st Contact Info) Description 02/08/2017 Documentation [facility] [place] Family Medicine [address] [place] [address] Family Medicine, Physician [address] [place], [place] [id number] Social History Tobacco Use Types Packs/Day Years [...] on filedocumented in this encounter Care Teams Letter Of Credit Clerk Relationship Specialty Start Date End Date Cyndee Bey MD [address] [place] [id number] PCP - General 06/22/17 12/10/17 documented as of this encounter
--- OUTSIDE RECORDS SUMMARY | 2025-07-30 12:24 | XMS_ITS | Encounter Summary ---
Author Organization [facility] Address [address] [place], [place] [id number] Phone Care Team Providers Care Reconditioner Name Role Phone Cyndee Bey MD Primary Care Provider [phone] Encounter Details Date Type Department Care Team (Late st Contact Info) Description 06/28/2017 Conversion Encounter [facility] [place] [address] [place] [address] Social History Tobacco Use Types Packs/Day Years [...] on filedocumented in this encounter Care Teams Reconditioner Relationship Specialty Start Date End Date Cyndee Bey MD [address] [place] [address] PCP - General 06/22/17 12/10/17 documented as of this encounter
--- OUTSIDE RECORDS SUMMARY | 2025-07-30 12:24 | XMS_ITS | Encounter Summary ---
Author Organization [facility] Address [address] [place] [phone] Phone Care Team Providers Care Mass Spec Name Role Phone Cyndee Bey MD Primary Care Provider [phone] Encounter Details Date Type Department Care Team (Late st Contact Info) Description 11/06/2012 Documentation [facility] [place] [facility] [address] [place] [address] Family Medicine, Physician [address] [place] [place], [place] [address] Social History Tobacco Use Types Packs/Day Years [...] on filedocumented in this encounter Care Teams Mass Spec Relationship Specialty Start Date End Date Cyndee Bey MD [address] [place] [address] PCP - General 06/22/17 12/10/17 documented as of this encounter
--- OUTSIDE RECORDS SUMMARY | 2025-07-30 12:24 | XMS_ITS | Encounter Summary ---
Author Organization [facility] Address [address] [place] [address] Phone Care Team Providers Care Shop Manager Name Role Phone Cyndee Bey MD Primary Care Provider [phone] Encounter Details Date Type Department Care Team (Late st Contact Info) Description 05/29/2017 Documentation [facility] Family Medicine [address] [place] [address] Family Medicine, Physician [address], [place] [address] Social History Tobacco Use Types Packs/Day Years [...] on filedocumented in this encounter Care Teams Shop Manager Relationship Specialty Start Date End Date Cyndee Bey MD [address] [place] [address] PCP - General 06/22/17 12/10/17 documented as of this encounter
--- OUTSIDE RECORDS SUMMARY | 2025-07-30 12:24 | XMS_ITS | Encounter Summary ---
Author Organization [facility] Address [address] [place] [address] Phone Care Team Providers Care Sand Buffer Name Role Phone Cyndee Bey MD Primary Care Provider [phone] Encounter Details Date Type Department Care Team (Late st Contact Info) Description 04/01/2010 Documentation [facility] [place] Family Medicine [address] [place] [address] Family Medicine, Physician [address] [place] [id number] Social History Tobacco Use Types Packs/Day Years [...] on filedocumented in this encounter Care Teams Sand Buffer Relationship Specialty Start Date End Date Cyndee Bey MD [address] [place] [address] PCP - General 06/22/17 12/10/17 documented as of this encounter
--- OUTSIDE RECORDS SUMMARY | 2025-07-30 12:25 | XMS_ITS | Encounter Summary ---
Author Organization [facility] Address [address] [place] [phone] Phone Care Team Providers Care Court Advocate Name Role Phone Unavailable Primary Care Provider Unavailabl e Reason for Visit * Reason Comments Med Refill Encounter Details Date Type Department Care Team (Late st Contact Info) Description 05/27/2022 Refill [facility] [address] [address] Olayinka Maria MD Sleep disorder, circadian; Nausea Social History Tobacco Use Types Packs/Day Years [...] there wasn't enough money for food? No 05/31/2021 Stable Housing Answer Date Recorded Are you worried that in the next 2 months you may not have stable housing? No 05/31/2021 Transportation Concerns Answer Date Rec orded In the last 12 months, have you or your family ever had to go without healthcare because you didn't have a way to get there? No 05/31/2021 Hazards in Home Answer Date Recorded Think about the place you li ve. Do you have problems with any of the following? Pests (mice or roaches), mold, no/not working smoke detectors, water leaks, no window guards. No 2020 Financing Utilities Answer Date Recorde d In the last 12 months, has t he electric, gas, oil, or water company threatened to shut off your services in your home? No 05/31/2021 Safety at Home Answer Date Recorded Are you or your family worried about feeling saf e in your home? No 05/31/2021 Outside Support Answer Date Recorded Do you feel that you need mo re support from other people or programs to help you care for yourself or your family? No 05/31/2021 Understanding Health Concerns Answer Da te Recorded Do you need help understandi ng your or your child's healthcare needs (diagnosis, medications, plan, etc.)? No 05/31/2021 Financing Health Concerns Answer Date R ecorded In the last 12 months, was t here a time when your child needed to see a doctor or get medications or supplies but could not because of cost? No 05/31/2021 Missing School or Work Answer Date Jake rded Did you or your child miss s chool or work because of a health problem that could have been avoided? No 05/31/2021 Comments No Sex and Gender Information Value Date Recorded Sex Assigned at Female 05/27/2020 11:05 AM EDT Legal Sex Female 5:23 PM EDT Gender Identity Female 05/27/2020 11:05 AM EDT Sexual Orientation Lesbian or House 05/27/2020 11 :05 AM EDT documented as of this encounter Miscellaneous Notes * Telephone Encounter - Linda Nguyen LPN - 05/29/2022 11:00 AM EDT PC PCP DG: Pharm requesting refill famotidine and melatonin. EH documented in this encounter Plan of Treatment Not on file documented as of this encounter Visit Diagnoses Diagnosis Sleep disorder, circadian Circadian rhythm sleep disorder, unspecified Nausea Nausea alone documented in this encounter
== END 2025-07-30 11:31 | disposition home or self-care (01) ==
LOC: HO.HMCC 10:26
PROVIDERS: PCP Internal Medicine; Visit Provider Internal Medicine
DX: Z00.01 Encounter for general adult medical examination with abnormal findings (principal); Z12.4 Encounter for screening for malignant neoplasm of cervix; F90.9 Attention-deficit hyperactivity disorder, unspecified type; Z71.89 Other specified counseling

== ENCOUNTER → 2025-07-30 10:26 | Outpatient (BNVA) | payer BC, SELFPAY | PROVIDERS: PCP Internal Medicine; Visit Provider Internal Medicine | DX: Z00.01 Encounter for general adult medical examination with abnormal findings (principal); F90.9 Attention-deficit hyperactivity disorder, unspecified type; Z71.89 Other specified counseling | CPT/HCPCS: 96127 ==